=== PATIENT | female | born 1955 | race Caucasian/White ===

== ENCOUNTER 2016-11-11 08:44 | Emergency (ER) | payer BC ==
--- NOTE | 2016-11-11 09:22 | PHYS DOC ---
General Chief Complaint: INSECT BITE Stated Complaint: INSECT BITE Time Seen by MD: 08:48 Source: patient Exam Limitations: no limitations Problems: History of Present Illness Initial Comments Patient is a 61-year-old female who comes to the ED complaining of insect bite. Patient states that immediately prior to arrival she was driving to work when she felt something warm on her right forearm. She says she looked down and there was a silver dollar sized area of redness on her forearm. She denies seeing any insects denies any pain but became concerned because the redness began to spread and by the time she reached the emergency department it had nearly covered the lateral aspect of her right forearm. There is puffy soft tissue swelling and warmth no definite puncture/bite wounds. She denies any cough or dyspnea lump in throat or shortness of breath. No history of insect allergies. No pre-arrival treatment patient thinks her tetanus is up-to-date. Onset: just prior to arrival Severity: moderate Pain/Injury Location: right forearm Method of Injury: other Modifying Factors: improves with other Allergies: Coded Allergies: Sulfa (Sulfonamide Antibiotics) (Verified Allergy, Unknown, 11/11/16) Past Medical History Medical History: other (anxiety, hypertension) Surgical History: noncontributory Social History Smoker: non-smoker Alcohol: none Drugs: none Review of Systems Constitutional: denies chills, denies diaphoresis, denies fever, denies malaise Respiratory: denies cough, denies shortness of breath, denies wheezing Cardiovascular: denies chest pain, denies palpitations, denies syncope Gastrointestinal: denies diarrhea, denies nausea, denies vomiting Genitourinary: denies dysuria, denies frequency, denies hematuria Musculoskeletal: denies back pain, denies joint swelling, denies neck pain Skin: see HPI Physical Exam General Appearance: WD/WN, mild distress (very anxious) HEENT: PERRL/EOMI, normal ENT inspection, TMs normal, pharynx normal (airway patent there is no soft tissue swelling) Neck: non-tender, supple Cardiovascular/Respiratory: normal peripheral pulses, normal breath sounds Back: no CVA tenderness, no vertebral tenderness Elbow/Forearm: normal ROM (lateral aspect of the right forearm with erythema and puffy soft tissue swelling as described above) Neurologic/Tendon: normal sensation, normal motor functions, normal tendon functions, responds to pain, no evidence tendon injury Psychiatric: alert, oriented x 3 Skin: warm/dry (right forearm erythema as above) Orders, Labs, Meds The patient received 1 L normal saline IV bolus, diphenhydramine 50 mg IV, Solu- Medrol 125 mg IV, and Pepcid 20 mg IV upon arrival. 0952: I rechecked the patient she states she's feeling much better. She is tired and says that the swelling and redness is resolving she has called her to pick her up and she is requesting discharge. Departure Time of Disposition: :53 Disposition: 01 HOME, SELF-CARE Diagnosis: insect bite allergy Condition: IMPROVED Patient Instructions: Insect Sting Allergy Additional Instructions: Off work today. Rest, no strenuous activity. Remain in a cool temperature environment for optimal symptom control. OTC benadryl and pepcid while taking prednisone. Rx: prednisone Follow up with your doctor in 2-3 days if not completely resolved. Return to ED with new or changing symptoms. LAZ MISHRA DO Nov 11, 2016 09:22
[2016-11-11] MEDS: diphenhydrAMINE 50 MG/ML VIAL IV ONE (09:44)
[2016-11-11] MEDS: IV NORMAL SALINE 1,000ML 500 ML IV SCH (09:44)
[2016-11-11] MEDS: methylPREDNISolone SOD SUCC PF 125 MG/2 ML VIAL. IV ONE (09:45)
[2016-11-11] MEDS: FAMOTIDINE 20 MG/2 ML VIAL IVP ONE (09:45)
[2016-11-11] MEDS ORDERED: PRED20TA PO (09:56)
[2016-11-11 10:10] VITALS: BP 168/97
== END 2016-11-11 10:10 | disposition home or self-care (01) ==
LOC: ER 08:44
DX: S50.861A Insect bite (nonvenomous) of right forearm, initial encounter (principal); I10 Essential (primary) hypertension; Z88.2 Allergy status to sulfonamides; W57.XXXA Bitten or stung by nonvenomous insect and other nonvenomous arthropods, initial encounter; Y93.89 Activity, other specified; Y99.8 Other external cause status; Y92.89 Other specified places as the place of occurrence of the external cause
CPT/HCPCS: 96374; 96375; 99284; J1200; J2930; S0028; J7030